=== PATIENT | female | born 1965 | race Caucasian/White ===

== ENCOUNTER 2019-01-20 09:22 | Outpatient (CLI) | payer OTHER ==
--- NOTE | 2019-01-20 10:26 | ULT ---
ULTRASOUND ABDOMEN LIMITED: (RIGHT UPPER QUADRANT) DATE: 01/20/2019 HISTORY: 53-year-old female with right upper quadrant abdominal pain, nausea, and emesis. FINDINGS: Gallbladder:Surgically absent Common duct: 2 mm. Liver:Echogenicity diffusely homogeneously slightly increased. This could be normal or could represen t fatty liver. Pancreas:Nonspecific sonographic appearance. Right kidney:No hydronephrosis. IMPRESSION: 1) status post cholecystectomy. 2) uncertainty regarding presence of hepatic steatosis.
== END 2019-01-20 09:23 | disposition home or self-care (01) ==
LOC: MADULT 09:22
PROVIDERS: ATTEND Family Medicine
DX: R74.8 Abnormal levels of other serum enzymes (principal); Z90.49 Acquired absence of other specified parts of digestive tract
CPT/HCPCS: 76705

== ENCOUNTER 2019-03-12 22:12 | Emergency (ER) | payer OTHER, SELFPAY ==
[2019-03-12] MEDS ORDERED: Acetaminophen 500 MG TAB ONE (22:46)
[2019-03-12] MEDS ORDERED: Oseltamivir 75 MG CAP ONE (22:46)
[2019-03-12] MEDS ORDERED: Ondansetron ODT 4 MG TAB ONE (22:46)
== END 2019-03-12 23:09 | disposition home or self-care (01) ==
LOC: MADERS 22:12
DX: J11.1 Influenza due to unidentified influenza virus with other respiratory manifestations (principal); K21.9 Gastro-esophageal reflux disease without esophagitis; Z87.891 Personal history of nicotine dependence
CPT/HCPCS: 99283; Q0162

== ENCOUNTER 2019-05-08 01:16 | Emergency (ER) | payer OTHER ==
[2019-05-08] MEDS ORDERED: Ibuprofen 800 MG TAB ONE (01:32)
[2019-05-08] MEDS ORDERED: Oseltamivir 75 MG CAP ONE (01:48)
[2019-05-08] MEDS ORDERED: Ondansetron ODT 4 MG TAB ONE (01:48)
== END 2019-05-08 02:05 | disposition home or self-care (01) ==
LOC: MADERS 01:16
DX: B34.9 Viral infection, unspecified (principal); K21.9 Gastro-esophageal reflux disease without esophagitis; Z87.891 Personal history of nicotine dependence
CPT/HCPCS: 87804; 99283; Q0162

== ENCOUNTER 2019-05-14 10:56 | Outpatient (CLI) | payer OTHER ==
[2019-05-14 11:13] LABS: Hemoglobin 11.3 g/dL (12.0-16.0); Mean Corpuscular HGB CONC 29.9 g/dL (32.0-36.0); Mean Corpuscular Hemoglobin 24.1 pg (27.0-31.0); Mean Corpuscular Volume 80.6 fL (78.0-98.0); Mean Platelet Volume 7.3 fL (7.4-10.4); Platelet Count 248 thou/uL (130-400); RBC Distribution Width 15.4 % (11.5-14.5); Red Blood Cell (RBC) Count 4.71 mill/uL (4.20-5.40)
== END 2019-05-14 10:57 | disposition home or self-care (01) ==
LOC: MADLAB 10:56
PROVIDERS: ATTEND Internal Medicine Hematology & Oncology
DX: E83.110 Hereditary hemochromatosis (principal)
CPT/HCPCS: 36415; 82728; 85027

== ENCOUNTER 2019-05-29 09:29 | Outpatient (CLI) | payer OTHER ==
[2019-05-29 09:45] LABS: Hemoglobin 10.5 g/dL (12.0-16.0); Mean Corpuscular HGB CONC 29.2 g/dL (32.0-36.0); Mean Corpuscular Hemoglobin 23.6 pg (27.0-31.0); Mean Corpuscular Volume 80.7 fL (78.0-98.0); Mean Platelet Volume 7.5 fL (7.4-10.4); Platelet Count 183 thou/uL (130-400); RBC Distribution Width 16.3 % (11.5-14.5); Red Blood Cell (RBC) Count 4.45 mill/uL (4.20-5.40); White Blood Cell (WBC) Count 6.5 thou/uL (4.8-10.8)
== END 2019-05-29 09:30 | disposition home or self-care (01) ==
LOC: MADLAB 09:29
PROVIDERS: ATTEND Internal Medicine Hematology & Oncology
DX: E83.110 Hereditary hemochromatosis (principal)
CPT/HCPCS: 36415; 82728; 85027

== ENCOUNTER 2019-06-30 10:29 | Outpatient (CLI) | payer OTHER ==
[2019-06-30 11:07] LABS: Hemoglobin 10.4 g/dL (12.0-16.0); Mean Corpuscular HGB CONC 30.6 g/dL (32.0-36.0); Mean Corpuscular Hemoglobin 24.1 pg (27.0-31.0); Mean Corpuscular Volume 78.6 fL (78.0-98.0); Platelet Count 183 thou/uL (130-400); Red Blood Cell (RBC) Count 4.32 mill/uL (4.20-5.40); White Blood Cell (WBC) Count 7.9 thou/uL (4.8-10.8)
== END 2019-06-30 10:30 | disposition home or self-care (01) ==
LOC: MADLAB 10:29
PROVIDERS: ATTEND Internal Medicine Hematology & Oncology
DX: E83.110 Hereditary hemochromatosis (principal)
CPT/HCPCS: 36415; 82728; 85027

== ENCOUNTER 2019-07-23 09:50 | Outpatient (CLI) | payer OTHER ==
[2019-07-23 10:32] LABS: Hemoglobin 10.7 g/dL (12.0-16.0); Mean Corpuscular HGB CONC 30.4 g/dL (32.0-36.0); Mean Corpuscular Hemoglobin 24.1 pg (27.0-31.0); Mean Corpuscular Volume 79.2 fL (78.0-98.0); Mean Platelet Volume 8.3 fL (7.4-10.4); Platelet Count 193 thou/uL (130-400); RBC Distribution Width 17.8 % (11.5-14.5); Red Blood Cell (RBC) Count 4.43 mill/uL (4.20-5.40); White Blood Cell (WBC) Count 8.1 thou/uL (4.8-10.8)
== END 2019-07-23 09:51 | disposition home or self-care (01) ==
LOC: MADLAB 09:50
PROVIDERS: ATTEND Internal Medicine Hematology & Oncology
DX: E83.110 Hereditary hemochromatosis (principal)
CPT/HCPCS: 36415; 82728; 85027

== ENCOUNTER 2019-08-19 07:50 | Outpatient (CLI) | payer OTHER ==
--- NOTE | 2019-08-19 09:20 | CT ---
ABDOMEN CT SCAN WITH AND WITHOUT CONTRAST: HISTORY: Epigastric pain, pancreas protocol. FINDINGS: Increased linear and interstitial markings noted in the lung dixon. There are some minimally dilated veins in the paraesophageal region, evidence for some esophageal varices. Status post cholecystectom y. No common duct dilatation. Some borderline-size annamaria hepatis and peripancreatic lymph nodes. N o evidence for pancreatic mass r abnormal fluid collection or associated acute pancreatitis. Minimal splenomegaly with several small cysts. The largest measures up to 3.2 cm. Right adrenal adenoma 1. 7 x 2.6 cm. No renal calculus or acute obstruction. No abnormal fluid collection within the abdo men. No renal mass. IMPRESSION: Status post cholecystectomy without common duct dilatation. Minimal esophageal varices. Right adrenal adenoma. Minimal to borderline size annamaria hepatis and parapancreatic lymph nodes. No evidence for pancreatic mass, ductal dilatation, abscess, or abnormal fluid collection. POS: RRE
[2019-08-19] MEDS ORDERED: Iopamidol 370 76% 125 ML VIAL FS ONE (10:52)
== END 2019-08-19 07:51 | disposition home or self-care (01) ==
LOC: MADCT 07:50
PROVIDERS: ATTEND Family Medicine
DX: R10.13 Epigastric pain (principal); I85.00 Esophageal varices without bleeding; D35.01 Benign neoplasm of right adrenal gland; Z90.49 Acquired absence of other specified parts of digestive tract
CPT/HCPCS: 74170; Q9967

== ENCOUNTER 2019-09-27 08:00 | Emergency (ER) | payer OTHER ==
[2019-09-28 12:16] LABS: SARS-CoV-2 MS2 Positive; SARS-CoV-2 N Gene Negative; SARS-CoV-2 S Gene Negative; SARS-CoV-2 by NAA Not Detected (NotDetected); SARS-CoV-2 orf1ab Negative
== END 2019-09-27 09:07 | disposition home or self-care (01) ==
LOC: MADERS 08:00
DX: J06.9 Acute upper respiratory infection, unspecified (principal); Z20.828 Contact with and (suspected) exposure to other viral communicable diseases; K74.60 Unspecified cirrhosis of liver; K21.9 Gastro-esophageal reflux disease without esophagitis; E11.9 Type 2 diabetes mellitus without complications; Z87.891 Personal history of nicotine dependence; Z79.899 Other long term (current) drug therapy; J30.2 Other seasonal allergic rhinitis
CPT/HCPCS: 87635; 87804; 99283; U0003

== ENCOUNTER 2020-06-27 11:51 | Emergency (ER) | payer OTHER ==
[~2020-06-27 11:51] MED LIST: Aspirin Chewable 81 MG TAB ONE; Nitroglycerin 2% Ointment 1 INCH/1 GM Packet ONE
[2020-06-27 12:04] LABS: Anion Gap 13 mmol/L (10-20); BUN (Urea Nitrogen) 9 mg/dL (9.8-20.1); Calc. Creatinine Clearance 0 mL/min (70-130); Carbon Dioxide 23 mmol/L (22-29); Chloride 104 mmol/L (98-107); Glucose 311 mg/dL (70-105); Potassium 3.6 mmol/L (3.5-5.1); Sodium 136 mmol/L (136-145)
[2020-06-27 12:05] LABS: ALT (SGPT) 70 U/L (8-55); AST (SGOT) 92 U/L (5-34); Albumin 3.7 g/dL (3.5-5.0); Alkaline Phosphatase 373 U/L (40-110); Bilirubin, Total 1.6 mg/dL (0.2-1.2); Calcium 8.8 mg/dL (7.8-10.44); Globulin 4.1 g/dL (2.4-3.5); Lipase 34 U/L (8-78); Protein, Total 7.8 g/dL (6.0-8.3)
[2020-06-27 12:07] LABS: %Neutrophils 55.1 % (42.0-75.0); Hemoglobin 13.5 g/dL (12.0-16.0); Mean Corpuscular HGB CONC 31.9 g/dL (32.0-36.0); Mean Corpuscular Hemoglobin 28.5 pg (27.0-31.0); Mean Corpuscular Volume 89.3 fL (78.0-98.0); Mean Platelet Volume 8.9 fL (7.4-10.4); Platelet Count 129 thou/uL (130-400); RBC Distribution Width 13.9 % (11.5-14.5); Red Blood Cell (RBC) Count 4.73 mill/uL (4.20-5.40); White Blood Cell (WBC) Count 6.7 thou/uL (4.8-10.8)
[2020-06-27 12:08] LABS: #Basophils 0.1 thou/uL (0.0-0.2); #Eosinphils 0.2 thou/uL (0.0-0.7); #Lymphocytes 2.1 thou/uL (1.20-3.40); #Monocytes 0.7 thou/uL (0.11-0.59); #Neutrophils 3.7 thou/uL (1.40-6.50); %Basophils 1.7 % (0.0-1.0); %Eosinophils 2.3 % (0.0-10.0); %Monocytes 9.9 % (0.0-10.0)
[2020-06-27 12:30] LABS: CKMB 1.3 ng/mL (0-6.6)
[2020-06-27] MEDS ORDERED: Nitroglycerin 2% Ointment 1 INCH/1 GM Packet TOP SCH (18:00)
== END 2020-06-27 13:52 | disposition short-term general hospital (02) ==
LOC: MADERS 11:51
DX: R07.89 Other chest pain (principal); E11.9 Type 2 diabetes mellitus without complications; Z86.16 Personal history of COVID-19; K74.60 Unspecified cirrhosis of liver; R79.89 Other specified abnormal findings of blood chemistry; R10.816 Epigastric abdominal tenderness
CPT/HCPCS: 36415; 71045; 80053; 82553; 83690; 84484; 85025; 93005; 94760

== ENCOUNTER 2020-11-22 02:20 | Emergency (ER) | payer OTHER ==
[2020-11-22] MEDS ORDERED: Ondansetron ODT 4 MG TAB ONE (02:39)
[2020-11-22] MEDS ORDERED: Ketorolac Tromethamine 60 MG/2 ML VIAL ONE (02:39)
[2020-11-22 16:03] LABS: SARS-CoV-2 PCR by NAA Not Detected (NotDetected)
== END 2020-11-22 02:55 | disposition home or self-care (01) ==
LOC: MADERS 02:20
DX: B34.9 Viral infection, unspecified (principal); Z20.822 Contact with and (suspected) exposure to COVID-19; E11.9 Type 2 diabetes mellitus without complications
CPT/HCPCS: 96372; 99283; J1885; Q0162; U0003; U0005

== ENCOUNTER 2021-05-16 06:56 | Outpatient (CLI) | payer OTHER ==
[2021-05-16 07:58] LABS: ALT (SGPT) 108 U/L (8-55); AST (SGOT) 150 U/L (5-34); Albumin 3.6 g/dL (3.5-5.0); Alkaline Phosphatase 301 U/L (40-110); Anion Gap 12 mmol/L (10-20); BUN (Urea Nitrogen) 7 mg/dL (9.8-20.1); Bilirubin, Total 1.5 mg/dL (0.2-1.2); Calc. Creatinine Clearance 0 mL/min (70-130); Calcium 9.2 mg/dL (7.8-10.44); Carbon Dioxide 24 mmol/L (22-29); Chloride 107 mmol/L (98-107); Glucose 198 mg/dL (70-105); Potassium 3.4 mmol/L (3.5-5.1); Protein, Total 7.6 g/dL (6.0-8.3); Sodium 140 mmol/L (136-145)
[2021-05-16 08:19] LABS: #Basophils 0.1 thou/uL (0.0-0.2); #Eosinphils 0.2 thou/uL (0.0-0.7); #Lymphocytes 2.1 thou/uL (1.20-3.40); #Monocytes 0.5 thou/uL (0.11-0.59); #Neutrophils 3.5 thou/uL (1.40-6.50); %Basophils 1.5 % (0.0-1.0); %Eosinophils 2.6 % (0.0-10.0); %Lymphocytes 32.7 % (21.0-51.0); %Monocytes 8.6 % (0.0-10.0); %Neutrophils 54.5 % (42.0-75.0); Hemoglobin 14.8 g/dL (12.0-16.0); Mean Corpuscular HGB CONC 33.7 g/dL (32.0-36.0); Mean Corpuscular Hemoglobin 30.2 pg (27.0-31.0); Mean Corpuscular Volume 89.7 fL (78.0-98.0); Platelet Count 113 thou/uL (130-400); RBC Distribution Width 13.2 % (11.5-14.5); Red Blood Cell (RBC) Count 4.89 mill/uL (4.20-5.40); White Blood Cell (WBC) Count 6.3 thou/uL (4.8-10.8)
[2021-05-16 09:02] LABS: Anisocytosis SLIGHT = 6-15 cells (100X) (0-5/hpf); Platelet Morphology Comment Appears Decreased
== END 2021-05-16 06:57 | disposition home or self-care (01) ==
LOC: MADLAB 06:56
PROVIDERS: ATTEND Internal Medicine Hematology & Oncology
DX: E83.110 Hereditary hemochromatosis (principal); E83.19 Other disorders of iron metabolism
CPT/HCPCS: 36415; 80053; 82728; 85025

== ENCOUNTER 2021-08-01 19:30 | Emergency (ER) | payer OTHER ==
[2021-08-01] MEDS ORDERED: Ondansetron PF 4 MG/2 ML Vial ONE (20:20)
[2021-08-01] MEDS ORDERED: Lactated Ringer's 1,000 ML ONE (20:20)
[2021-08-01 20:36] LABS: Base Excess-Venous -1.5 mmol/L (-2.0 to 3.0); Bicarbonate (HCO3v) 22.3 mmol/L (22.0-28.0); Chloride 106 mmol/L (98-107); Hemoglobin - Calc 12.7 g/dL (12.0-16.0); Potassium 3.5 mmol/L (3.5-5.1); Sodium 141 mmol/L (138-145); T. Carbon Dioxide 23.3 mmol/L (22.0-28.0); vO2 Saturation-calc 82.5 % (60.0-85.0)
[2021-08-01 20:41] LABS: ALT (SGPT) 67 U/L (8-55); AST (SGOT) 93 U/L (5-34); Albumin 3.7 g/dL (3.5-5.0); Alkaline Phosphatase 318 U/L (40-110); Anion Gap 15 mmol/L (10-20); BUN (Urea Nitrogen) 10 mg/dL (9.8-20.1); Bilirubin, Total 2.2 mg/dL (0.2-1.2); Calc. Creatinine Clearance 0 mL/min (70-130); Calcium 9.1 mg/dL (7.8-10.44); Carbon Dioxide 23 mmol/L (22-29); Chloride 105 mmol/L (98-107); Globulin 3.8 g/dL (2.4-3.5); Glucose 275 mg/dL (70-105); Lipase 24 U/L (8-78); Potassium 3.6 mmol/L (3.5-5.1); Protein, Total 7.5 g/dL (6.0-8.3); Sodium 139 mmol/L (136-145)
[2021-08-01 20:54] LABS: #Basophils 0.1 thou/uL (0.0-0.2); #Eosinphils 0.2 thou/uL (0.0-0.7); #Lymphocytes 1.4 thou/uL (1.20-3.40); #Monocytes 0.5 thou/uL (0.11-0.59); #Neutrophils 2.5 thou/uL (1.40-6.50); %Basophils 2.1 % (0.0-1.0); %Eosinophils 4.7 % (0.0-10.0); %Lymphocytes 30.1 % (21.0-51.0); %Monocytes 10.1 % (0.0-10.0); %Neutrophils 52.9 % (42.0-75.0); Hemoglobin 11.4 g/dL (12.0-16.0); Mean Corpuscular Hemoglobin 25.1 pg (27.0-31.0); Mean Corpuscular Volume 80.9 fL (78.0-98.0); Mean Platelet Volume 8.6 fL (7.4-10.4); Platelet Count 109 thou/uL (130-400); Platelet Morphology Comment Appears Decreased; RBC Distribution Width 14.7 % (11.5-14.5); Red Blood Cell (RBC) Count 4.55 mill/uL (4.20-5.40); White Blood Cell (WBC) Count 4.7 thou/uL (4.8-10.8)
== END 2021-08-01 22:54 | disposition home or self-care (01) ==
LOC: MADERS 19:30
DX: E11.65 Type 2 diabetes mellitus with hyperglycemia (principal); Z79.4 Long term (current) use of insulin
CPT/HCPCS: 36416; 80053; 82010; 82330; 82803; 83690; 85014; 85025; 96361; 96374; J2405; J7120

== ENCOUNTER 2021-11-09 12:47 | Outpatient (CLI) | payer BC, SELFPAY ==
[2021-11-09 13:11] LABS: #Basophils 0.1 thou/uL (0.0-0.2); #Eosinphils 0.1 thou/uL (0.0-0.7); #Monocytes 0.5 thou/uL (0.11-0.59); #Neutrophils 2.9 thou/uL (1.40-6.50); %Basophils 1.6 % (0.0-1.0); %Eosinophils 2.5 % (0.0-10.0); %Lymphocytes 35.6 % (21.0-51.0); %Monocytes 9.1 % (0.0-10.0); %Neutrophils 51.3 % (42.0-75.0); Hemoglobin 12.1 g/dL (12.0-16.0); Mean Corpuscular HGB CONC 30.3 g/dL (32.0-36.0); Mean Corpuscular Hemoglobin 24.3 pg (27.0-31.0); Mean Platelet Volume 9.7 fL (7.4-10.4); Platelet Count 101 thou/uL (130-400); RBC Distribution Width 17.1 % (11.5-14.5); Red Blood Cell (RBC) Count 4.97 mill/uL (4.20-5.40); White Blood Cell (WBC) Count 5.6 thou/uL (4.8-10.8)
[2021-11-09 13:20] LABS: ALT (SGPT) 66 U/L (8-55); AST (SGOT) 83 U/L (5-34); Albumin 3.8 g/dL (3.5-5.0); Alkaline Phosphatase 267 U/L (40-110); Anion Gap 14 mmol/L (10-20); BUN (Urea Nitrogen) 11 mg/dL (9.8-20.1); Bilirubin, Total 1.8 mg/dL (0.2-1.2); Calc. Creatinine Clearance 0 mL/min (70-130); Calcium 9.7 mg/dL (7.8-10.44); Carbon Dioxide 24 mmol/L (22-29); Cardiac Risk 3.2 (Less than 4.5); Chloride 106 mmol/L (98-107); Cholesterol 237 mg/dl (< 200 Desired); Estimated GFR 96; Globulin 3.9 g/dL (2.4-3.5); Glucose 198 mg/dL (70-105); HDL Cholesterol 74 mg/dL (>60 Neg Risk); LDL Cholesterol, Calculated 140 mg/dL; Potassium 4.2 mmol/L (3.5-5.1); Protein, Total 7.7 g/dL (6.0-8.3); Sodium 140 mmol/L (136-145); Triglycerides 117 mg/dL (Less than 150)
[2021-11-09 13:44] LABS: Anisocytosis SLIGHT = 6-15 cells (100X) (0-5/hpf)
[2021-11-09 13:45] LABS: Platelet Morphology Comment Appears Decreased
[2021-11-09 14:06] LABS: Thyroid Stimulating Hormone 1.4673 uIU/mL (0.35-4.94)
[2021-11-09 16:52] LABS: Ferritin 30.36 ng/mL (10-291); Free T4 (Free Thyroxine) 1.01 ng/dL (0.70-1.48)
[2021-11-09 17:35] LABS: Creatinine, Urine 76.18 mg/dL (47-110); Microalbumin Urine 1.2 mg/dL (0.5-50.0); Microalbumin/Creat Ratio 15.8 mg/g (Less than 30)
== END 2021-11-09 12:48 | disposition home or self-care (01) ==
LOC: MADLABBHPM 12:47 → MADLAB 12:48
PROVIDERS: ATTEND Family Medicine
DX: E11.9 Type 2 diabetes mellitus without complications (principal); E83.119 Hemochromatosis, unspecified
CPT/HCPCS: 80053; 80061; 82043; 82728; 83036; 84439; 84443; 84481; 85025

== ENCOUNTER 2022-03-21 20:15 | Emergency (ER) | payer BC, OTHER ==
[~2022-03-21 20:15] MED LIST changes: -Aspirin Chewable 81 MG TAB ONE; -Nitroglycerin 2% Ointment 1 INCH/1 GM Packet ONE; +Sodium Chloride 0.9% 1,000 ML BAG ONE
[2022-03-21] MEDS ORDERED: Orphenadrine Citrate 60 MG/2 ML VIAL ONE (20:44)
[2022-03-21 20:50] LABS: Bilirubin Negative (Negative); Blood, Urine Negative (Negative); Clarity Clear (Clear); Glucose, Urine (Dipstick) 500 mg/dL (Negative); Ketone, Urine 15 mg/dL (Negative); Leukocyte Negative (Negative); Nitrite Negative (Negative); Protein, Urine (Dipstick) Negative (Neg-Trace); Specific Gravity, Urine 1.026 (1.002-1.036)
[2022-03-21 21:25] LABS: #Basophils 0.1 thou/uL (0.0-0.2); #Eosinphils 0.1 thou/uL (0.0-0.7); #Lymphocytes 1.8 thou/uL (1.20-3.40); #Monocytes 0.5 thou/uL (0.11-0.59); #Neutrophils 2.5 thou/uL (1.40-6.50); %Basophils 1.8 % (0.0-1.0); %Eosinophils 1.7 % (0.0-10.0); %Lymphocytes 37.2 % (21.0-51.0); %Monocytes 9.3 % (0.0-10.0); %Neutrophils 49.9 % (42.0-75.0); Anisocytosis SLIGHT = 6-15 cells (100X) (0-5/hpf); Hemoglobin 12.9 g/dL (12.0-16.0); MDiff Complete? YES; Mean Corpuscular HGB CONC 32.8 g/dL (32.0-36.0); Mean Corpuscular Hemoglobin 26.4 pg (27.0-31.0); Mean Corpuscular Volume 80.4 fl (78.0-98.0); Mean Platelet Volume 8.1 fL (7.4-10.4); Ovalocytes SLIGHT = 2-5 cells (100X) (0-1/hpf); Platelet Count 109 10x3/uL (130-400); Platelet Morphology Comment Appears Decreased; Red Blood Cell (RBC) Count 4.87 mill/uL (4.20-5.40); White Blood Cell (WBC) Count 4.9 10x3/uL (4.8-10.8)
[2022-03-21 21:31] LABS: ALT (SGPT) 62 U/L (8-55); AST (SGOT) 72 U/L (5-34); Albumin 3.7 g/dL (3.5-5.0); Alkaline Phosphatase 272 U/L (40-110); Anion Gap 15 mmol/L (10-20); BUN (Urea Nitrogen) 13 mg/dL (9.8-20.1); Bilirubin, Total 1.9 mg/dL (0.2-1.2); Calc. Creatinine Clearance 0 mL/min (70-130); Calcium 9.8 mg/dL (7.8-10.44); Carbon Dioxide 22 mmol/L (22-29); Chloride 105 mmol/L (98-107); Estimated GFR 89; Globulin 3.7 g/dL (2.4-3.5); Glucose 221 mg/dL (70-105); Lipase 25 U/L (8-78); Potassium 3.6 mmol/L (3.5-5.1); Protein, Total 7.4 g/dL (6.0-8.3); Sodium 138 mmol/L (136-145)
[2022-03-21] MEDS ORDERED: Ketorolac Tromethamine 30 MG/ML VIAL ONE (22:02)
== END 2022-03-21 22:35 | disposition home or self-care (01) ==
LOC: MADERS 20:15
DX: M79.18 Myalgia, other site (principal); E11.9 Type 2 diabetes mellitus without complications; Z79.4 Long term (current) use of insulin; Z79.84 Long term (current) use of oral hypoglycemic drugs
CPT/HCPCS: 36416; 80053; 81003; 83690; 85025; 87086; 96361; 96372; 96374; J1885; J2360; J7050

== ENCOUNTER 2022-06-14 21:07 | Emergency (ER) | payer BC, OTHER, SELFPAY ==
[2022-06-14] MEDS ORDERED: Ibuprofen 800 MG TAB ONE (21:37)
[2022-06-14] MEDS ORDERED: Dexamethasone 4 MG TAB ONE (21:37)
[2022-06-14] MEDS ORDERED: Ondansetron ODT 4 MG TAB ONE (21:37)
== END 2022-06-14 22:32 | disposition home or self-care (01) ==
LOC: MADERS 21:07
DX: R05.9 Cough, unspecified (principal); R09.81 Nasal congestion; M79.10 Myalgia, unspecified site; K21.9 Gastro-esophageal reflux disease without esophagitis; E11.9 Type 2 diabetes mellitus without complications; Z79.4 Long term (current) use of insulin; Z20.822 Contact with and (suspected) exposure to COVID-19
CPT/HCPCS: 87081; 87430; 87804; 99283; J8540; Q0162; U0003; U0005

== ENCOUNTER 2022-12-14 13:26 | Emergency (ER) | payer OTHER ==
[2022-12-14] MEDS ORDERED: Ibuprofen 800 MG TAB ONE (14:01)
== END 2022-12-14 15:02 | disposition home or self-care (01) ==
LOC: MADERS 13:26
DX: J11.1 Influenza due to unidentified influenza virus with other respiratory manifestations (principal); E11.9 Type 2 diabetes mellitus without complications; Z79.4 Long term (current) use of insulin; Z79.899 Other long term (current) drug therapy
CPT/HCPCS: 71045; 87804; 93005

== ENCOUNTER 2023-08-21 23:25 | Emergency (ER) | payer OTHER ==
[2023-08-22 00:33] LABS: Bilirubin Negative (Negative); Blood, Urine Negative (Negative); Clarity Clear (Clear); Glucose, Urine (Dipstick) >=1000 mg/dL (Negative); Ketone, Urine Negative (Negative); Leukocyte Negative (Negative); Nitrite Negative (Negative); Protein, Urine (Dipstick) Negative (Neg-Trace)
[2023-08-22] MEDS ORDERED: Phenazopyridine HCl 95 MG TAB ONE (00:35)
[2023-08-22] MEDS ORDERED: Fluconazole 100 MG TAB ONE (00:35)
[2023-08-22 00:38] LABS: CAUTI Indications for Culture Dysuria,urgency,freq; RBC/HPF 0-3 HPF (0-3); Squamous Epithelial 0-3 HPF (0-3); WBC/HPF 0-3 HPF (0-3)
[2023-08-22 00:40] LABS: Urine Culture Reflex No No
== END 2023-08-22 01:25 | disposition home or self-care (01) ==
LOC: MADERS 23:25
DX: B37.49 Other urogenital candidiasis (principal); E11.9 Type 2 diabetes mellitus without complications; Z79.4 Long term (current) use of insulin
CPT/HCPCS: 36416; 81001; 87086; 99284

== ENCOUNTER 2023-09-02 06:18 | Emergency (ER) | payer OTHER ==
[2023-09-02] MEDS ORDERED: Sodium Chloride 0.9% 1,000 ML ONE (06:33)
[2023-09-02] MEDS ORDERED: Ondansetron PF 4 MG/2 ML Vial ONE (06:33)
[2023-09-02 07:01] LABS: #Basophils 0.1 thou/uL (0.0-0.2); #Eosinphils 0.2 thou/uL (0.0-0.7); #Lymphocytes 1.5 thou/uL (1.20-3.40); #Monocytes 0.4 thou/uL (0.11-0.59); #Neutrophils 2.7 thou/uL (1.40-6.50); %Basophils 1.4 % (0.0-1.0); %Eosinophils 3.3 % (0.0-10.0); %Lymphocytes 30.7 % (21.0-51.0); %Monocytes 8.4 % (0.0-10.0); %Neutrophils 56.2 % (42.0-75.0); Hematocrit 40.3 % (36.0-47.0); Hemoglobin 13.1 g/dL (12.0-16.0); Mean Corpuscular HGB CONC 32.5 g/dL (32.0-36.0); Mean Corpuscular Hemoglobin 29.2 pg (27.0-31.0); Mean Corpuscular Volume 89.7 fl (78.0-98.0); Mean Platelet Volume 7.9 fL (7.4-10.4); Platelet Count 81 10x3/uL (130-400); RBC Distribution Width 13.7 % (11.5-14.5); Red Blood Cell (RBC) Count 4.49 mill/uL (4.20-5.40); White Blood Cell (WBC) Count 4.7 10x3/uL (4.8-10.8)
[2023-09-02 07:03] LABS: Bilirubin Negative (Negative); Blood, Urine Negative (Negative); Clarity Clear (Clear); Glucose, Urine (Dipstick) >=1000 mg/dL (Negative); Ketone, Urine Negative (Negative); Leukocyte Negative (Negative); Nitrite Negative (Negative); Protein, Urine (Dipstick) Negative (Neg-Trace); Specific Gravity, Urine 1.015 (1.005-1.030)
[2023-09-02 07:05] LABS: CAUTI Indications for Culture Pelvic or flank pain; RBC/HPF 0-3 HPF (0-3); Squamous Epithelial 0-3 HPF (0-3); WBC/HPF None Seen HPF (0-3)
[2023-09-02 07:06] LABS: Urine Culture Reflex No No
[2023-09-02 07:20] LABS: ALT (SGPT) 80 U/L (8-55); AST (SGOT) 110 U/L (5-34); Albumin 3.6 g/dL (3.5-5.0); Alkaline Phosphatase 367 U/L (40-110); Anion Gap 27 mmol/L (10-20); BUN (Urea Nitrogen) 8 mg/dL (9.8-20.1); Bilirubin, Total 1.5 mg/dL (0.2-1.2); Calc. Creatinine Clearance 0 mL/min (70-130); Calcium 8.8 mg/dL (7.8-10.44); Carbon Dioxide 20 mmol/L (22-29); Chloride 98 mmol/L (98-107); Estimated GFR 90; Globulin 3.1 g/dL (2.4-3.5); Lipase 34 U/L (8-78); Magnesium 1.7 mg/dL (1.6-2.6); Potassium 3.8 mmol/L (3.5-5.1); Protein, Total 6.7 g/dL (6.0-8.3); Sodium 141 mmol/L (136-145)
[2023-09-02 07:21] LABS: Glucose 403 mg/dL (70-105)
[2023-09-02 07:44] LABS: Base Excess-Venous 1.1 mmol/L (-2.0 to 3.0); Bicarbonate (HCO3v) 25.4 mmol/L (22.0-28.0); CO2 Tension (PvCO2) 38.2 mmHg (42.0-51.0); Calcium, Ionized 1.13 mmol/L (1.15-1.33); Chloride 101 mmol/L (98-107); Hemoglobin - Calc 14.7 g/dL (12.0-16.0); Potassium 3.6 mmol/L (3.5-5.1); Sodium 135 mmol/L (138-145); T. Carbon Dioxide 26.5 mmol/L (22.0-28.0); vO2 Saturation-calc 99.2 % (60.0-85.0)
[2023-09-02 08:03] LABS: Troponin I 0.051 ng/mL (< 0.028)
[2023-09-02 09:50] LABS: ALT (SGPT) 73 U/L (8-55); AST (SGOT) 100 U/L (5-34); Albumin 3.4 g/dL (3.5-5.0); Alkaline Phosphatase 341 U/L (40-110); Anion Gap 28 mmol/L (10-20); BUN (Urea Nitrogen) 6 mg/dL (9.8-20.1); Bilirubin, Total 1.3 mg/dL (0.2-1.2); Calc. Creatinine Clearance 0 mL/min (70-130); Calcium 8.3 mg/dL (7.8-10.44); Carbon Dioxide 22 mmol/L (22-29); Chloride 101 mmol/L (98-107); Estimated GFR 96; Glucose 297 mg/dL (70-105); Potassium 3.9 mmol/L (3.5-5.1); Protein, Total 6.4 g/dL (6.0-8.3); Sodium 147 mmol/L (136-145)
[2023-09-02 09:51] LABS: Troponin I 0.049 ng/mL (< 0.028)
== END 2023-09-02 10:31 | disposition home or self-care (01) ==
LOC: MADERS 06:18
DX: E11.65 Type 2 diabetes mellitus with hyperglycemia (principal); R79.89 Other specified abnormal findings of blood chemistry; Z79.4 Long term (current) use of insulin
CPT/HCPCS: 36416; 71045; 80053; 81001; 82330; 82803; 83690; 83735; 84484; 85025; 93005; 96361; 96374; 36415-59; J2405; J7050

== ENCOUNTER 2025-02-10 12:39 | Outpatient (CLI) | payer OTHER ==
[2025-02-10 13:32] LABS: ALT (SGPT) 51 U/L (Less than 34); AST (SGOT) 98 U/L (11-34); Albumin 3.1 g/dL (3.1-4.5); Alkaline Phosphatase 231 U/L (40-110); Anion Gap 11 mmol/L (10-20); BUN (Urea Nitrogen) 11 mg/dL (9.8-20.1); Bilirubin, Direct 0.8 mg/dL (0.1-0.3); Bilirubin, Total 2.2 mg/dL (0.3-1.2); Calc. Creatinine Clearance 0 mL/min (70-130); Calcium 8.4 mg/dL (7.8-10.44); Carbon Dioxide 21 mmol/L (22-29); Cardiac Risk 4.0 (Less than 4.5); Chloride 112 mmol/L (98-107); Cholesterol 260 mg/dl (< 200 Desired); Globulin 3.4 g/dL (2.4-3.5); Glucose 123 mg/dL (70-105); HDL Cholesterol 65 mg/dL (>60 Neg Risk); LDL Cholesterol, Calculated 176 mg/dL; Potassium 3.6 mmol/L (3.5-5.1); Sodium 140 mmol/L (136-145); Triglycerides 95 mg/dL (Less than 150)
[2025-02-10 14:18] LABS: #Basophils 0.1 thou/uL (0.0-0.2); #Eosinophils 0.2 thou/uL (0.0-0.7); #Lymphocytes 1.3 thou/uL (1.20-3.40); #Monocytes 0.4 thou/uL (0.11-0.59); #Neutrophils 2.5 thou/uL (1.40-6.50); %Basophils 1.5 % (0.0-1.0); %Eosinophils 4.0 % (0.0-10.0); %Lymphocytes 28.5 % (21.0-51.0); %Monocytes 8.5 % (0.0-10.0); %Neutrophils 57.6 % (42.0-75.0); Hematocrit 41.8 % (36.0-47.0); Hemoglobin 13.8 g/dL (12.0-16.0); MDiff Complete? YES; Mean Corpuscular Hemoglobin 30.6 pg (27.0-31.0); Mean Corpuscular Volume 92.7 fl (78.0-98.0); Platelet Adequacy Comment Appears Adequate; Platelet Count 86 10x3/uL (130-400); Red Blood Cell (RBC) Count 4.51 mill/uL (4.20-5.40); White Blood Cell (WBC) Count 4.4 10x3/uL (4.8-10.8)
== END 2025-02-10 12:40 | disposition home or self-care (01) ==
LOC: MADLAB 12:39
PROVIDERS: ATTEND Family Medicine
DX: Z00.00 Encounter for general adult medical examination without abnormal findings (principal); E11.65 Type 2 diabetes mellitus with hyperglycemia; K74.60 Unspecified cirrhosis of liver
CPT/HCPCS: 36415; 80053; 80061; 82248; 83036; 85025